=== PATIENT | male | born 2000 | race Caucasian/White ===

== ENCOUNTER 2021-08-22 20:43 | Emergency (ER) | payer SELFPAY ==
[2021-08-22 20:44] VITALS: BP 143/77; PULSE 90; RESP 16; TEMP 35.8; O2SAT 97; BMI 24.7
--- NOTE | 2021-08-22 20:56 | EDS_ITS ---
HPI History of Present Illness Chief Complaint: Disclocation Informant: patient Narrative Narrative: [id number] male presents left shoulder injury occurring yesterday while playing volleyball. He states he came down felt the left shoulder go out and back in. He states today has gone in and out half dozen times. Noted paresthesias down the arm which is improving. Ibuprofen taken 3 hours ago. He states his right shoulder was dislocated and relocated 2 years ago on its own. He never followed up. Denies any past medical history. States there is a family history of lax joints per patient. Denies Cait-Danlos syndromes. Prior similar symptoms: Yes PFSH PFSH Allergy/AdvReac Type Severity Reaction Status Date / Time No Known Allergies Allergy Verified 08/22/21 20:45 Social History Smoking Status: Never smoker ROS ROS ED Constitutional Constitutional ED: Denies chills, fever(s) or sweats Eyes Eyes: Denies change in vision ENT ENT ED: Denies dysphagia or sore throat Cardiovascular Cardiovascular: Denies chest pain, leg edema, palpitations or racing heartbeat Respiratory/Chest Respiratory/Chest: Denies cough, dyspnea or dyspnea on exertion Gastrointestinal Gastrointestinal: Denies abdominal pain, diarrhea, nausea or vomiting Genitourinary Genitourinary ED: Denies dysuria, hematuria or urinary frequency Musculoskeletal Musculoskeletal: Reports other Details: Left shoulder pain ; Denies back pain, extremity pain or neck pain Integumentary Denies rash or wounds Neurologic Neurologic: Denies headache(s), paresthesias or weakness EXAM Physical Exam Const Vital Signs: 08/22/21 20:44 Temperature 96.5 F L Temperature Source Temporal Pulse Rate 90 Respiratory Rate 16 Blood Pressure 143/77 H Blood Pressure Mean 99 Pulse Ox 97 Oxygen Delivery Method Room Air Positive well nourished and well developed General Appearance ED: well developed and NAD HEENT Reports moist mucous membranes normocephalic and atraumatic Eyes PERRL, EOMs intact bilaterally and conjunctivae normal General Eye ED: Yes normal appearance of both eyes Neck no lymphadenopathy and supple General: Negative for tenderness Chest Wall Chest: Negative for tenderness Resp normal respiratory effort and normal air movement Effort and Inspection: symmetric chest movement; Negative for respiratory distress Cardio regular rate, regular rhythm and no murmurs Peripheral Pulses: pulses 2+ throughout GI normal to inspection, nondistended, normoactive bowel sounds and non-tender Palpation: Negative for guarding or rebound tenderness present Back/Spine no CVA tenderness and no thoracic nor lumbar tenderness Extremity normal to inspection Extremity Narrative: Left upper extremity: No clavicular tenderness. No deformities. Pain with active range of motion, full range of motion passively. No elbow pain. Skin intact. Neuro vas intact distally. General Extremety ED: Negative for edema or tenderness General Extremity: Negative for edema Neuro oriented x3 and no sensory deficits noted Sensorium / Orientation: awake and alert Skin no rashes or lesions noted and no wounds MDM MDM MDM Narrative Medical decision making narrative: Patient clinically is relocated on exam. X- ray 2 views obtained and reviewed by myself did not note any abnormalities. Reporting multiple dislocations relocations by history. He is placed in a sling and swath. Given follow orthopedics. Continue ibuprofen at home. All questions were answered. Discharge Plan Triage Chief Complaint: Disclocation ED Provider: Elijah Navarro Dx/Rx/DC Orders Clinical Impression: Dislocation of shoulder, left, closed Instructions: Understanding Shoulder Instability, ED Dislocation: Shoulder ( Reduced) Referrals: ADRIAN CONNOR [Other] Wellington Lee DO [STAFF PHYSICIAN] - 1 Week Disposition Disposition: Home, Self Care Discharge Date/Time: 08/22/21 21:28
--- NOTE | 2021-08-22 20:56 | RAD_ITS ---
STUDY: X-RAY - LEFT SHOULDER REASON FOR EXAM: Male, 21 years old. dislocation and relocations TECHNIQUE: 2 view(s) of the shoulder. COMPARISON: None. FINDINGS: Normal glenohumeral articulation. Normal acromioclavicular joint. Normal acromion. Normal humeral head and visualized proximal humerus. The soft tissue structures are unremarkable. There is no demonstrated fracture. Normal visualized pulmonary apex. RAD/Shoulder min 2 Views IMPRESSION: Normal x-ray examination of the shoulder. Electronically Signed: Akbar Benitez MD at 22:03 EDT , Service support ,
[2021-08-22 21:27] VITALS: BP 143/71; PULSE 81
== END 2021-08-22 21:28 | disposition home or self-care (01) ==
PROVIDERS: Emergency Provider Emergency Medicine
DX: S43.005A Unspecified dislocation of left shoulder joint, initial encounter (principal); Y93.68 Activity, volleyball (beach) (court)
CPT/HCPCS: 73030; 99282

== ENCOUNTER 2021-12-01 11:08 | Emergency (ER) | payer BC, SELFPAY ==
[2021-12-01 11:08] VITALS: BP 128/88; PULSE 78; RESP 18; TEMP 36.3; O2SAT 100; BMI 23.9
[2021-12-01 11:25] VITALS: O2SAT 98
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
[2021-12-01 11:28] VITALS: O2SAT 99
[2021-12-01] MEDS: Albuterol 2.5 MG/3 ML VIAL.NEB. INHALATION (11:32)
[2021-12-01 11:33] VITALS: PULSE 78; RESP 18
[2021-12-01 13:07] VITALS: O2SAT 99
[2021-12-01] MEDS: Ipratropium/Albuterol Sulfate 3 ML AMPUL.NEB INHALATION (13:22)
== END 2021-12-01 13:41 | disposition home or self-care (01) ==
PROVIDERS: Emergency Provider Emergency Medicine; Visit Provider Emergency Medicine
DX: T59.811A Toxic effect of smoke, accidental (unintentional), initial encounter (principal); R06.02 Shortness of breath; Z79.899 Other long term (current) drug therapy
CPT/HCPCS: 94640; 99282

== ENCOUNTER 2022-12-21 15:25 | Emergency (ER) | payer BC, SELFPAY ==
[2022-12-21 15:27] VITALS: BP 164/98; PULSE 100; RESP 14; TEMP 36.6; O2SAT 97
[2022-12-21 15:37] VITALS: BMI 25.9
--- NOTE | 2022-12-21 15:38 | CT_ITS ---
INDICATION: headache EXAMINATION: CT BRAIN WITH CONTRAST TECHNIQUE: Noncontrast axial images were obtained of the brain. Subsequently, routine carotid CT angiogram protocol was performed without and with IV contrast. In addition, images were obtained of the [place]. NASCET criteria using the distal ICAs for comparison were used for evaluation of stenoses. 3D reconstructions were reviewed. A radiation dose optimization technique was used for this scan. IV Contrast dosage and agent: 100 cc [id number] COMPARISON: None. FINDINGS: --CT BRAIN: BRAIN PARENCHYMA: No intra- or extra-axial hemorrhage. No evidence of acute infarct. No intracranial mass or mass effect. There is preservation of the mcgarry/white matter interface. Posterior fossa structures are unremarkable. CSF SPACES: Appropriate for age. No hydrocephalus. Basal cisterns are patent. CALVARIUM, SKULL BASE, PARANASAL SINUSES AND MASTOID AIR CELLS: Clear. No discrete lytic or blastic abnormalities. --CTA NECK: AORTIC ARCH AND BRANCHES: Vessel origins patent. RIGHT CCA: No occlusion, significant stenosis or dissection. RIGHT ICA: No occlusion, significant stenosis or dissection. LEFT CCA: No occlusion, significant stenosis or dissection. LEFT ICA: No occlusion, significant stenosis or dissection. RIGHT VERTEBRAL ARTERY: No occlusion, significant stenosis or dissection. LEFT VERTEBRAL ARTERY: No occlusion, significant stenosis or dissection. NECK SOFT TISSUES: Unremarkable. --CTA HEAD: --Anterior circulation: ICAs: No significant stenosis at the intracranial/visualized segments. ACAs: No significant stenosis at the visualized segments. ACOM: Present. MCAs: No significant stenosis at the visualized segments. --Posterior circulation: PCOMs: Not seen. remote sensing program manager: No significant stenosis at the visualized segments. BASILAR ARTERY: No significant stenosis. VERTEBRAL ARTERIES: No significant stenosis at the intradural/visualized segments. No evidence of intracranial aneurysm or vascular malformation. CT/CTA Head AND Neck W/ Contrast IMPRESSION: Negative CT Brain, CTA Carotid, and CTA Brain. Electronically Signed: José Krause MD at 16:50 EST ,
--- NOTE | 2022-12-21 15:39 | EX.ED.VIS.HA ---
HPI History of Present Illness Chief Complaint: Headache Detail of Chief Complaint: Headache Informant: patient Narrative Narrative: Patient presents the emergency department complaint of a headache that started suddenly approximately 12:30 PM p.m. Patient states that he was in class when he had sudden onset of severe pain in the left side of his head felt like a rubber band going off in his head. Pain was severe initially. Pain continues to have pain now that he rates between a 4 and a 6 out of 10. He denies any photophobia currently. He does have some mild nausea. Patient spoke with his primary care physician via telehealth and was instructed to go to urgent care or ER for evaluation. 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 No family history of brain tumors or aneurysms. Patient does have history of migraines but states this headache is very different than his typical migraines which normally present with aura and photophobia which she does not have. Patient also states that afterwards he noticed that his right leg felt heavy as well as his right arm. Patient denies any falls or head injuries. He is not anticoagulated. [facility] Medical History Allergies Asthma Home Medications albuterol sulfate 90 mcg/actuation aerosol inhaler (Ventolin HFA) 1 - 2 puff inhalation Q4H PRN PRN Wheezing ##1 12/01/21 [Rx Last Taken Unknown] cetirizine 5 mg tablet 5 mg PO DAILY 12/01/21 [History Last Taken Unknown] Allergy/AdvReac Type Severity Reaction Status Date / Time No Known Allergies Allergy Verified 12/21/22 15:26 Surgical History History of tonsillectomy and adenoidectomy Social History Smoking Status: Never smoker ROS ROS ED Review of Systems ROS Unobtainable: other Constitutional Constitutional ED: Reports lethargy; Denies chills, fever(s), sweats or weight loss Eyes Eyes: Denies blurry vision, change in vision or diplopia ENT ENT ED: Denies rhinorrhea or sore throat Cardiovascular Cardiovascular: Denies chest pain, orthopnea or racing heartbeat Respiratory/Chest Respiratory/Chest: Denies cough, dyspnea, dyspnea on exertion, orthopnea or sputum Gastrointestinal Gastrointestinal: Reports nausea; Denies abdominal pain, diarrhea or vomiting Genitourinary Genitourinary ED: Denies dysuria, hematuria or urinary frequency Musculoskeletal Musculoskeletal: Denies arthralgias, back pain, myalgias or neck pain Integumentary Denies abscess, Abrasions or rash Neurologic Neurologic: Reports headache(s); Denies weakness Psychiatric Psychiatric: Denies anxiety, depression or suicidal thoughts Endocrine Endocrinology: Denies polydipsia, polyphagia or polyuria Hematologic/Lymphatic Hematologic/Lymphatic: Denies easy bleeding, easy bruising or lymphadenopathy Allergic/Immunologic Allergic/Immunologic ED: Denies mouth swelling, tongue swelling or urticaria EXAM Physical Exam Const Vital Signs: 12/21/22 15:27 Temperature 98 F Temperature Source Temporal Pulse Rate 100 Respiratory Rate 14 Blood Pressure 164/98 H Blood Pressure Mean 120 Pulse Ox 97 Oxygen Delivery Method Room Air Positive well nourished and well developed General Appearance ED: well developed and NAD HEENT Reports TM's clear and moist mucous membranes HEENT Narrative: Patient's left eye does not track laterally past the midline which is a chronic finding for him. normocephalic and atraumatic; Negative for trauma or tenderness Tympanic Membrane ED: Yes TM's clear Eyes PERRL Eyes Narrative: Patient's left eye does not track laterally past midline which is a chronic finding for him. General Eye ED: Negative for pale conjunctiva or scleral icterus Neck no lymphadenopathy, supple and no JVD General: Negative for tenderness Chest Wall inspection of chest normal and palpation of chest normal Chest: Negative for tenderness Resp normal respiratory effort and clear to auscultation bilaterally Effort and Inspection: Negative for respiratory distress or pain with movement Auscultation: Negative for rhonchi, wheezes or diminished lung sounds Cardio regular rate, regular rhythm, S1 normal heart sound, S2 normal heart sound and no murmurs Peripheral Pulses: pulses 2+ throughout GI normal to inspection, nondistended, normoactive bowel sounds, soft to palpation, non-tender, non-distended and no masses Back/Spine no CVA tenderness and no thoracic nor lumbar tenderness Extremity normal to inspection General Extremety ED: Negative for edema General Extremity: Negative for edema Neuro oriented x3, CN's II-XII intact bilaterally, no sensory deficits noted and gait normal Neuro Narrative: Finger-nose and heel barrera testing within normal limits, negative Romberg, negative for drift, fundi benign. Sensorium / Orientation: awake, alert, oriented to person, oriented to place and oriented to time Motor Exam: strength 5/5 throughout and strength abnormal Psych mental status grossly normal Skin no rashes or lesions noted and no wounds MDM MDM MDM Narrative Medical decision making narrative: IV established on arrival. Patient had a CT of the brain without contrast as well as CTA head and neck and all were normal. I subsequently went and gave him his results and ordered treatment for migraine including Benadryl and Toradol and Reglan however he states he is feeling much better now and does not want those medications. Patient wanted me to speak with his mother which I did. She informed me that he ran out of his clonazepam a week ago and was wondering if maybe this was an event related to anxiety and increase stress. She did asked me to give him a one-time dose of his clonazepam as she does have his refill that she mailed to him and he should have it by tomorrow. Patient will be given clonazepam 0.5 mg p.o. and he will be discharged to home. Patient advised to return if worsening headache, difficulty with balance or speech, or condition should worsen anyway. Lab Data Attestation: I reviewed the patient's lab results. Labs: Laboratory Results - last 24 hr 12/21/22 12/21/22 15:45 15:45 WBC 6.9 RBC 5.49 Hgb 16.5 Hct 47.3 MCV 86.2 MCH 30.1 MCHC 34.9 RDW Std Deviation 39.5 RDW Coeff of Peter 12.6 Plt Count 246 MPV 9.1 Sodium 141 Potassium 3.8 Chloride 105 Carbon Dioxide 30.0 Anion Gap 6 BUN 14 Creatinine 1.03 Estim Creat Clear Calc 113.45 Est GFR (MDRD) Af Amer 117 Est GFR (MDRD) Non-Af 97 BUN/Creatinine Ratio 13.6 Glucose 111 H Calcium 9.4 Radiography Diagnostic Testing: Clinical Impression(s) from Imaging Studies Head/Neck CTA 12/21/22 15:38 IMPRESSION: Negative CT Brain, CTA Carotid, and CTA Brain. Electronically Signed: José Krause MD at 16:50 EST , Discharge Plan Triage Chief Complaint: Headache ED Provider: Lars Borrero Dx/Rx/DC Orders Clinical Impression: Headache, Anxiety Instructions: ED Anxiety Reaction, ED Headache, Tension Prescriptions: No Action cetirizine [Zyrtec] 5 mg Tablet 5 mg PO DAILY albuterol sulfate [Ventolin HFA] 1 INHALER inhaler 1 - 2 puff inhalation Q4H PRN PRN (Reason: Wheezing) Qty: 1 0RF Primary Care Provider: ADRIAN CONNOR Referrals: ADRIAN CONNOR [Other] Activity Restrictions/Additional Instructions: Follow-up with your family doctor within the next 3 to 5 days as needed. Return if worsening headache, trouble with balance, or condition should worsen anyway. Disposition Disposition: Home, Self Care
[2022-12-21 16:06] LABS: Hematocrit 47.3 % (40-54); Hemoglobin 16.5 g/dL (13.0-16.5); Mean Corp Hgb Conc 34.9 g/dL (32-36); Mean Corpuscular Hgb 30.1 pg (27.0-32.0); Mean Corpuscular Volume 86.2 fL (80-94); Mean Platelet Vol. 9.1 fl (6.2-12.0); Platelet Count 246 K/mm3 (150-450); RBC Distribution Width CV 12.6 % (11.6-14.6); RBC Distribution Width SD 39.5 fl (35.1-43.9); Red Blood Count 5.49 M/mm3 (4.6-6.2); White Blood Count 6.9 K/mm3 (4.4-11.0)
[2022-12-21 16:14] LABS: Anion Gap 6 (5-15); BUN 14 mg/dL (7-18); BUN/Creat Ratio 13.6 RATIO (10-20); Calcium,Total 9.4 mg/dL (8.5-10.1); Chloride 105 mmol/L (98-107); Creatinine, Serum 1.03 mg/dL (0.70-1.30); EST Glomerular Filtration Rate 97 mL/min (>60); Est Glom Filt Rate - Afr Amer 117 mL/min (>60); Estimated Creatinine Clearance 113.45 ml/min; Glucose 111 mg/dL (74-106); Potassium 3.8 mmol/L (3.5-5.1); Sodium Level 141 mmol/L (136-145)
[2022-12-21] MEDS: DiphenhydrAMINE 50 MG/ML Syringe 25 MG IV (17:29)
[2022-12-21] MEDS: Ketorolac 30 MG/ML Syringe IV (17:30)
[2022-12-21] MEDS: Metoclopramide 10 MG/2 ML Vial IV (17:30)
[2022-12-21 18:19] VITALS: RESP 16
== END 2022-12-21 18:20 | disposition home or self-care (01) ==
PROVIDERS: Emergency Provider Emergency Medicine; Visit Provider Emergency Medicine
DX: R51.9 Headache, unspecified (principal); F41.9 Anxiety disorder, unspecified
CPT/HCPCS: 70496; 70498; 80048; 85027; 96374; 96375; 99283; Q9967